=== PATIENT | male | born 1955 | race Caucasian/White ===

== ENCOUNTER 2017-02-16 15:56 | Emergency (ER) | payer BC ==
[~2017-02-16] VITALS: Ht 172.7 cm; Wt 104.6 kg
[2017-02-16 16:05] VITALS: TEMP 36.7; Ht 172.7 cm; Wt 104.6 kg
[2017-02-16] MEDS ORDERED: ESCI1TAB10 PO (16:50)
[2017-02-16] MEDS ORDERED: CHOL1000 PO (16:50)
[2017-02-16] MEDS ORDERED: FLAX12003 PO (16:50)
[2017-02-16] MEDS ORDERED: MULT-513 PO (16:50)
[2017-02-16] MEDS ORDERED: OMEG10007 PO (16:50)
[2017-02-16] MEDS ORDERED: B COCAP3 PO (16:50)
[2017-02-16] MEDS ORDERED: PRLSR20 PO (16:50)
[2017-02-16] MEDS ORDERED: CLOB-77 TOP (16:50)
[2017-02-16 17:33] LABS: BASO % 0.3 %; BASO ABS # 0.02 K/uL (0-0.2); COMPLETE YES; EOS % 2.9 %; HEMATOCRIT 47.9 % (42-52); IG% 0.3 %; LYMPH % 24.2 %; LYMPH ABS # 1.83 K/uL (1.2-3.4); MEAN CELL VOLUME 89.2 fL (80-100); MEAN CORPUSCULAR HEMOGLOBIN 29.2 pg (25-34); MEAN CORPUSCULAR HGB CONC 32.8 g/dl (32-36); MONO % 8.6 %; NEUT % 63.7 %; PLATELET COUNT 239 K/uL (130-400); RED BLOOD COUNT 5.37 M/uL (4.7-6.1); WHITE BLOOD COUNT 7.56 K/uL (4.8-10.8)
[2017-02-16 17:51] LABS: BUN/CREATININE RATIO 16.6 (10-20); CALCIUM 8.5 mg/dl (8.5-10.1); CREATININE 0.98 mg/dl (0.60-1.40)
[2017-02-16 17:57] LABS: URINE APPEARANCE CLEAR (CLEAR); URINE BILIRUBIN NEG (NEG); URINE COLOR YELLOW; URINE NITRITE NEG (NEG); URINE SPECIFIC GRAVITY 1.029 (1.000-1.030); UROBILINOGEN NEG (NEG)
[2017-02-16 18:09] LABS: MANUAL MICROSCOPIC REQUIRED? NO; REVIEW REQ? YES
[2017-02-16 18:17] LABS: URINE MUCUS PRESENT (NONE PRSENT)
--- NOTE | 2017-02-16 18:41 | DIAGNOSTIC IMAGING REPORT ---
SCROTAL ULTRASOUND CLINICAL HISTORY: Right testicular pain and swelling. COMPARISON STUDY: None. TECHNIQUE: Grayscale and color and duplex Doppler sonography of the scrotum was performed. FINDINGS: The right testis measures 4.4 x 2.5 x 3.3 cm and the left measures 4.1 x 2.7 x 2.6 cm. Color flow within each testis is symmetric. There is no testicular mass. No normal epididymis is identified. There are multiple complex cystic abnormalities within the scrotum, including a 4.3 x 4 x 2.5 cm abnormality adjacent to the left testis and a 4.6 x 4.3 x 2.8 cm abnormality adjacent to the right testis. There are small bilateral hydroceles. IMPRESSION: 1. Normal sonographic appearance of the testes. No testicular mass. No evidence of testicular torsion. 2. Multiple cystic abnormalities within the scrotum with low level echoes which could reflect large bilateral epididymal cysts or spermatoceles. 3. Small bilateral hydroceles. Electronically signed by: Sawyer Valentine M.D. 02/16/2017 6:40 PM Dictated Date/Time: 02/16/2017 6:37 PM
[2017-02-16] MEDS ORDERED: LEVO-366 PO (19:11)
[2017-02-16] MEDS ORDERED: LEVOFLOXACIN 500 MG TAB PO ONE (19:15)
[2017-02-16] MEDS ORDERED: LEVOFLOXACIN 250 MG TAB ONE (19:17)
[2017-02-16 19:30] VITALS: BP 141/81; PULSE 88; O2SAT 97
--- NOTE | 2017-02-16 22:44 | EMERGENCY ROOM VISIT NOTE ---
History First contact with patient: 16:14 Chief Complaint: TESTICULAR PAIN Stated Complaint: SWOLLEN TESTICLES, CANT URINATE History of Present Illness The patient is a 61 year old white male who presents to the Emergency Room with complaints of right-sided testicular pain and swelling that has been present for 2 days. He states he has been having difficulty urinating for this duration as well. He feels as though he needs to urinate, but is only able to get out about an ounce at a time. He feels as though his abdomen is somewhat more distended. He denies any difficulty moving his bowels. He has tenderness on the backside of his right testicle. He also states they're swollen. He does have a history of varicoceles and previous right-sided hernia. His accompanies him today. No fevers or chills. No nausea or vomiting. He denies any hematuria or dysuria. Review of Systems REVIEW OF SYSTEM: HEENT: No dizziness, visual problems, hearing loss, or tinnitus. There is no difficulty swallowing and no oral lesions are present. LYMPH: No adenopathy. PULMONARY: No cough, shortness of breath, sputum production or hemoptysis. CARDIOVASCULAR: No chest pain, palpitations, shortness of breath or peripheral edema. GASTROINTESTINAL: No diarrhea, constipation, nausea, vomiting, or abdominal pain. GENITOURINARY: No urgency or nocturia. Positive history of frequency and varicoceles. Positive sensation of incomplete voiding. NEUROLOGIC: No weakness, muscle tenderness, epilepsy or history of neurological problems. MUSCULOSKELETAL: No history of joint tenderness/swelling. No history of arthritis or arthralgias. SKIN: No rashes or lesions. PSYCHIATRIC: No history of depression or mental illness. ENDOCRINE: No history of diabetes, thyroid disorders, or abnormal hair growth. Past Medical/Surgical History Previous surgeries: Herniorrhaphy. Medical history: Significant for obesity and varicoceles Family History Noncontributory. Social History Smoking Status: Never Smoker Smokeless Tobacco Use: No Drug Use: none Marital Status: Housing Status: lives with family Occupation Status: employed Current/Historical Medications Scheduled B Complex W/ C (Vitamin B Complex-C), 1 CAP PO DAILY Cholecalciferol (Vitamin D3), 5,000 TAB PO DAILY Clobetasol Propionate (Temovate), 1 APPLN TOP BID Escitalopram Oxalate (Lexapro), 20 MG PO DAILY Fish Oil ([place]-3), 1,000 MG PO DAILY Flaxseed (Linseed) (Flaxseed Oil), 1 CAP PO DAILY Levofloxacin (Levaquin), 500 MG PO DAILY Multivitamins/Minerals (Mvi With Minerals), 1 TAB PO DAILY Omeprazole (Prilosec), 20 MG PO DAILY Physical Exam Vital Signs Date Time Temp Pulse Resp B/P (MAP) Pulse Ox O2 Delivery O2 Flow Rate FiO2 02/16/17 19:30 88 18 141/81 97 Room Air 02/16/17 18:50 61 18 126/76 96 Room Air 02/16/17 16:05 36.7 61 20 148/87 93 Room Air Physical Exam Gen.: Well-developed, well-nourished, middle-aged white male, in no acute distress. Laying on a bed. Alert and oriented. Skin:Warm and dry with good turgor. No rashes or lesions. No ecchymosis or erythema. The patient is not diaphoretic. No abrasions. Heart: Heart RRR. No MGR. No carotid bruit. Peripheral pulses are 2+. Lungs: Lungs are clear to auscultation. No crackles rhonchi or wheezing. Good air movement. The patient is able to take a deep breath. Abdomen: Abdomen was inspected, auscultated, and palpated. Bowel sounds present x 4. Soft, suprapubic discomfort to palpation. No hepato- splenomegaly. No masses noted. Lower abdomen feels somewhat firm. No rebound , negative Byers sign. No pain over McBurney's point. No CVA tenderness. Genital: Scrotum is swollen and tender on the right posterior to palpation. Varicoceles are palpable within the scrotum. No pain with palpation of the inguinal canal, pedal shaft, left testicle. No active drainage. Medical Decision & Procedures ER Provider Diagnostic Interpretation: Testicular ultrasound obtained today was read by radiology. IMPRESSION: 1. Normal sonographic appearance of the testes. No testicular mass. No evidence of testicular torsion. 2. Multiple cystic abnormalities within the scrotum with low level echoes which could reflect large bilateral epididymal cysts or spermatoceles. 3. Small bilateral hydroceles. Laboratory Results 02/16/17 17:20 Red Blood Count 5.37, Mean Corpuscular Volume 89.2, Mean Corpuscular Hemoglobin 29.2, Mean Corpuscular Hemoglobin Concent 32.8, Mean Platelet Volume 10.0, Neutrophils (%) (Auto) 63.7, Lymphocytes (%) (Auto) 24.2, Monocytes (%) (Auto) 8.6, Eosinophils (%) (Auto) 2.9, Basophils (%) (Auto) 0.3, Neutrophils # (Auto) 4.82, Lymphocytes # (Auto) 1.83, Monocytes # (Auto) 0.65, Eosinophils # (Auto) 0.22, Basophils # (Auto) 0.02 02/16/17 17:20 Test 02/16/17 17:20 02/16/17 17:45 White Blood Count 7.56 K/uL (4.8-10.8) Red Blood Count 5.37 M/uL (4.7-6.1) Hemoglobin 15.7 g/dL (14.0-18.0) Hematocrit 47.9 % (42-52) Mean Corpuscular Volume 89.2 fL (80-100) Mean Corpuscular Hemoglobin 29.2 pg (25-34) Mean Corpuscular Hemoglobin Concent 32.8 g/dl (32-36) Platelet Count 239 K/uL (130-400) Mean Platelet Volume 10.0 fL (7.4-10.4) Neutrophils (%) (Auto) 63.7 % Lymphocytes (%) (Auto) 24.2 % Monocytes (%) (Auto) 8.6 % Eosinophils (%) (Auto) 2.9 % Basophils (%) (Auto) 0.3 % Neutrophils # (Auto) 4.82 K/uL (1.4-6.5) Lymphocytes # (Auto) 1.83 K/uL (1.2-3.4) Monocytes # (Auto) 0.65 K/uL (0.11-0.59) Eosinophils # (Auto) 0.22 K/uL (0-0.5) Basophils # (Auto) 0.02 K/uL (0-0.2) RDW Standard Deviation 43.5 fL (36.4-46.3) RDW Coefficient of Variation 13.3 % (11.5-14.5) Immature Granulocyte % (Auto) 0.3 % Immature Granulocyte # (Auto) 0.02 K/uL (0.00-0.02) Anion Gap 7.0 mmol/L (3-11) Est Creatinine Clear Calc Drug Dose 94.0 ml/min Estimated GFR () 96.7 Estimated GFR (Non- 83.5 BUN/Creatinine Ratio 16.6 (10-20) Calcium Level 8.5 mg/dl (8.5-10.1) Chemistry Specimen Hemolysis Urine Color YELLOW Urine Appearance CLEAR (CLEAR) Urine pH 6.0 (4.5-7.5) Urine Specific [place] 1.029 (1.000-1.030) Urine Protein NEG (NEG) Urine Glucose (UA) NEG (NEG) Urine Ketones NEG (NEG) Urine Occult Blood NEG (NEG) Urine Nitrite NEG (NEG) Urine Bilirubin NEG (NEG) Urine Urobilinogen NEG (NEG) Urine Leukocyte Esterase SMALL (NEG) Urine WBC (Auto) 5-10 /hpf (0-5) Urine RBC (Auto) 0-4 /hpf (0-4) Urine Hyaline Casts (Auto) 0 /lpf (0-5) Urine Epithelial Cells (Auto) 5-10 /lpf (0-5) Urine Bacteria (Auto) NEG (NEG) Urine Crystals CALCIUM OXALATE (NONE Urine Mucus PRESENT (NONE PRSENT) UA, CBC, PRP were obtained. CBC and PRP are unremarkable. Urine shows leukocyte esterase, epithelials, calcium oxalate, and urine mucus. Negative for bacteria. Cultures were sent. Medications Administered Medications (Trade) Dose Ordered Sig/Nathaly Route Start Time Stop Time Status Last Admin Dose Admin Levofloxacin (Levaquin Tab) 500 mg STK-MED ONCE .ROUTE 02/16/17 19:17 02/16/17 19:18 DC 02/16/17 19:30 500 MG Levaquin 500 mg by mouth ED Course Patient was educated regarding today's findings. Conservative care measures were discussed. Labs were obtained. Ultrasound of the testicles was also obtained. Given his exam and lab findings, possibility of early epididymitis was discussed. Possibility of UTI was also discussed. Because of this, he was started on Levaquin 500 milligrams daily. First dose was given in the ED. Additional prescription was provided. I do not think he requires catheter placement this point. Obviously return to the ED if he has any inability to void. He does not require admission. Tylenol and Motrin every 6 hours as needed for discomfort. Follow-up with his PCP or urologist later this week for reexamination. He will consider whether or not to have his hydroceles addressed surgically. Care plan was discussed with Dr. Marley. Medical Decision Possibility of UTI, BPH, testicular torsion, hernia, epididymitis, and kidney stone were considered among others. Blood Pressure Screening Patient's blood pressure: Normal blood pressure Impression Primary Impression: Testicular pain, right Departure Information Prescriptions Levofloxacin (Levaquin) 500 Mg Tab 500 MG PO DAILY for 9 Days, #9 TAB Prov: Serge Chris,P.A. 02/16/[address] [facility]
== END 2017-02-16 19:32 | disposition home or self-care (01) ==
LOC: C.EDB 15:57
DX: N50.811 Right testicular pain (principal); Z98.890 Other specified postprocedural states

== ENCOUNTER 2017-06-13 05:23 | Day surgery (SDC) | payer BC ==
[2017-05-31 08:11] VITALS: BMI 35.0
--- NOTE | 2017-05-31 08:56 | PAT Medication Instructions ---
Service Date May 31, 2017. Current Home Medication List B Complex W/ C (Vitamin B Complex-C), 1 CAP PO QAM Cholecalciferol (Vitamin D3), 5,000 TAB PO QAM Clobetasol Propionate (Temovate), 1 APPLN TOP BID PRN for rash Escitalopram Oxalate (Escitalopram Oxalate), 10 MG PO HS Fish Oil ([place]-3), 1,000 MG PO QAM Flaxseed (Linseed) (Flaxseed Oil), 2 CAP PO QAM Multivitamins/Minerals (Mvi With Minerals), 1 TAB PO QAM Omeprazole (Prilosec), 20 MG PO QAM Medication Instructions For Your Scheduled Surgery - Hold the following medications starting today (05/31): Fish Oil ([place]-3), 1,000 MG PO QAM Flaxseed (Linseed) (Flaxseed Oil), 2 CAP PO QAM - Hold the following medications 24 hours prior to surgery: Clobetasol Propionate (Temovate), 1 APPLN TOP BID PRN for rash - Hold the following medications the morning of surgery: Multivitamins/Minerals (Mvi With Minerals), 1 TAB PO QAM B Complex W/ C (Vitamin B Complex-C), 1 CAP PO QAM Cholecalciferol (Vitamin D3), 5,000 TAB PO QAM - Take the following medications the morning of surgery with a sip of water: Omeprazole (Prilosec), 20 MG PO QAM - Take the following medications as scheduled the night before surgery: Escitalopram Oxalate (Escitalopram Oxalate), 10 MG PO HS If you have any questions please call us at [phone] or [phone] or [phone]
[2017-05-31 11:08] LABS: BASO % 0.4 %; BASO ABS # 0.03 K/uL (0-0.2); COMPLETE YES; EOS % 2.7 %; HEMATOCRIT 46.7 % (42-52); IG% 0.6 %; LYMPH % 26.3 %; LYMPH ABS # 1.84 K/uL (1.2-3.4); MEAN CELL VOLUME 90.7 fL (80-100); MEAN CORPUSCULAR HGB CONC 35.3 g/dl (32-36); MEAN PLATELET VOLUME 10.8 fL (7.4-10.4); MONO % 11.7 %; NEUT % 58.3 %; PLATELET COUNT 203 K/uL (130-400); RED BLOOD COUNT 5.15 M/uL (4.7-6.1); WHITE BLOOD COUNT 6.99 K/uL (4.8-10.8)
[2017-05-31 11:20] LABS: BUN/CREATININE RATIO 16.4 (10-20); CALCIUM 9.4 mg/dl (8.5-10.1); CREATININE 0.98 mg/dl (0.60-1.40); POTASSIUM 4.3 mmol/L (3.5-5.1)
[2017-05-31 11:31] LABS: MANUAL MICROSCOPIC REQUIRED? NO; REVIEW REQ? NO; URINE APPEARANCE TURBID (CLEAR); URINE BILIRUBIN NEG (NEG); URINE COLOR YELLOW; URINE EPITHELIAL CELL AUTO 20-30 /lpf (0-5); URINE NITRITE NEG (NEG); URINE PH 7.5 (4.5-7.5); URINE SPECIFIC GRAVITY 1.022 (1.000-1.030); UROBILINOGEN NEG (NEG)
[~2017-06-13] VITALS: Ht 172.7 cm; Wt 106.4 kg
[~2017-06-13 05:23] MED LIST: B COCAP3 PO; CHOL1000 PO; CLOB-77 TOP; FLAX12003 PO; LXP10 PO; MULT-513 PO; OMEG10007 PO; PRLSR20 PO
[2017-06-13 05:54] VITALS: BP 148/93; PULSE 69; TEMP 36.5; O2SAT 95; Ht 172.7 cm; Wt 106.4 kg
[2017-06-13] MEDS ORDERED: CEFAZOLIN 3000MG IV PUSH 15 ML IV SCH (06:00)
[2017-06-13] MEDS ORDERED: LACTATED RINGER'S 1000ML 1,000 ML IV SCH (06:00)
[2017-06-13] MEDS ORDERED: LIDOCAINE HCL 2% 2 ML VIAL (20MG/ML) ONE (06:26)
[2017-06-13] MEDS ORDERED: FENTANYL CITRATE INJ 50 MCG/1 ML 2 ML VIAL ONE (06:26)
[2017-06-13] MEDS ORDERED: MIDAZOLAM HCL 1 MG/ML 2ML VIAL ONE (06:26)
[2017-06-13] MEDS ORDERED: PROPOFOL IV EMULSION 10 MG/ML 20 ML VIAL IV ONE (06:26)
[2017-06-13] MEDS ORDERED: DEXAMETHASONE SOD INJ 4 MG/ML VIAL ONE (06:26)
[2017-06-13] MEDS ORDERED: ONDANSETRON INJ 2 MG/ML 2 ML VIAL ONE (06:26)
[2017-06-13] MEDS ORDERED: BACITRACIN OINT 15 GM TUBE ONE (07:07)
[2017-06-13] MEDS ORDERED: BUPIVACAINE 0.5 % 5 MG/1 ML MPF 30ML VIAL ONE (07:08)
--- NOTE | 2017-06-13 07:11 | History & Physical Bridge Note ---
H&P Re-Evaluation Bridge Note: I have examined the patient, reviewed the History & Physical and in the interval since the performance of the History & Physical I have noted the following changes of clinical significance: No changes noted
--- NOTE | 2017-06-13 07:22 | [facility] Operative Report ---
Operative Report Operative Date Jun 13, 2017. Pre-Operative Diagnosis Bilateral Hydrocele/Spermatocele Post-Operative Diagnosis Same Procedure(s) Performed Bilateral Hydrocelectomy and Spermatocelectomy Surgeon Steffen Continuing Education Dean Surgeon(s) None Estimated Blood Loss 15cc Findings Bilateral benign appearing testicular cystic lesions likely spermatocele and hydrocele. Fluids See Anes Report Specimens Right and left cystic lesions Drains None Anesthesia General Complication(s) None Disposition Recovery Room / PACU Indications Bothersome and worsening bilateral cystic scrotal lesions. Risks and benefits discussed and patient wished to proceed. Description of Procedure Patient was consented and brought back to the operating room. Patient was placed under anesthesia in the supine position. Patient was prepped and draped in the regular sterile fashion. A time out was completed. With the timeout completed, the median raphe was marked and an injection of local anesthetic placed into the skin. Bilateral cord blocks were also completed. An incision was made into the scrotum focusing on the right hemiscrotum. The subcutaneous tissues were dissected and the testicle delivered. With the testicle delivered the entire structure was examined. The hydrocele/spermatocele was visualized and all major cord structures and testicular structures were identified. The lesion was dissected away and removed. All bleeding was controlled with electrocautery. The hydrocele sac was excised and removed and the edges oversewn. At this point, any scrotal wall bleeding was controlled with cautery and the testicle delivered into the scrotum. The left hemiscrotum was then entered and the left testicle delivered. With the testicle delivered the entire structure was examined. The hydrocele/ spermatocele was visualized and all major cord structures and testicular structures were identified. The lesion was dissected away and removed. All bleeding was controlled with electrocautery. The hydrocele sac was excised and removed and the edges oversewn. At this point, any scrotal wall bleeding was controlled with cautery and the testicle delivered into the scrotum. The area was irrigated and all bleeding discovered and cauterized. The hemiscrotum bilaterally were closed with a running vicryl suture. [place] tissues were reapproximated and closed with a running vicryl suture. The skin edges were reapproximated with a running monocryl suture. The area was cleaned and skin glue placed on the wound. The patient was cleaned, scrotal support and fluff dressing placed, aroused from anesthesia, and transferred to the pacu in stable condition having tolerated the procedure well with no complications. I was present and participated in all aspects of the procedure. The patient will be monitored in the PACU until transferred. I attest to the content of the Intraoperative Record and any orders documented therein. Any exceptions are noted below.
[2017-06-13] MEDS ORDERED: OXYC7.5T65 PO (07:23)
[2017-06-13] MEDS ORDERED: LIDOCAINE HCL 1% 20 ML VIAL ONE (07:26)
[2017-06-13] MEDS ORDERED: BUPIVACAINE 0.25% 30 ML VIAL ONE (07:26)
--- NOTE | 2017-06-13 07:26 | Discharge Instructions ---
Discharge Instructions Date of Service Jun 13, 2017. Admission Reason for Admission: Spermatocele, Hydrocele Discharge Discharge Diagnosis / Problem: Bilateral Hydrocele Discharge Goals Goal(s): Decrease discomfort, Improve function Activity Recommendations Activity Limitations: resume your previous activity Lifting Limitations: no more than 10 pounds, no more than 25 pounds Exercise/Sports Limitations: as tolerated, rest today, gradually increase as tolerated Shower/Bathe: tomorrow May have discomfort or minor swelling. Okay to wash 2-3 x daily with warm soapy water. Do not scrub. No soaking or baths or hot tubs. Ice okay 20 mins on and 20 mins off. Elevate scrotum when laying flat, sitting, or walking. Wear supportive undergarments and watch for injury. Monitor for new swelling or severe pain. Monitor wound for swelling or redness. . Current Hospital Diet Patient's current hospital diet: Reg Discharge Diet Recommended Diet: Regular Diet Procedures Procedures Performed: Bilateral Hydrocelectomy and Spermatocelectomy Pending Studies Studies pending at discharge: no Medical Emergencies . Who to Call and When: Medical Emergencies: If at any time you feel your situation is an emergency, please call 911 immediately. . Non-Emergent Contact Non-Emergency issues call your: Primary Care Provider, Urologist Call Non-Emergent contact if: you have a fever, temperature is above 101, temperature is above 101.5, your pain is not controlled, your pain is worsening , your pain is unusual for you, wound has increased drainage, wound has increased redness, wound has increased pain . . "Provider Documentation" section prepared by Ruperto Bourne,. . VTE Core Measure Inpt VTE Proph given/why not?: Luciana Grullon, SCD's
[2017-06-13] MEDS ORDERED: FENTANYL CITRATE INJ 50 MCG/1 ML 2 ML VIAL IV PRN (07:30)
[2017-06-13] MEDS ORDERED: ATROPINE SULFATE 0.1 MG/ML 5ML SYR IV PRN (07:30)
[2017-06-13] MEDS ORDERED: OXYCODONE/ACETAMINOPHEN 7.5-325 TAB PO PRN (07:30)
[2017-06-13] MEDS ORDERED: HYDROmorphone INJ 1 MG/ML SYR IV PRN (07:30)
[2017-06-13] MEDS ORDERED: EpHEDrine SULFATE INJ 50 MG/ML AMP IV PRN (07:30)
[2017-06-13] MEDS ORDERED: ONDANSETRON INJ 2 MG/ML 2 ML VIAL IV PRN (07:30)
[2017-06-13] MEDS ORDERED: EpHEDrine SULFATE 50MG/5ML SYR ONE (07:40)
[2017-06-13] MEDS ORDERED: PHENYLEPHRINE 100MCG/ML 5ML SYR ONE (07:40)
[2017-06-13] MEDS ORDERED: ALBUMIN HUMAN 5% 12.5 GM/250 ML VIAL IV ONE (07:49)
--- NOTE | 2017-06-13 09:51 | Anesthesiology Progress Note ---
Anesthesia Post Op Note Date & Time Jun 13, 2017 at 09:51 Vital Signs Pain Intensity: 0 Vital Signs Past 12 Hours Date Time Temp Pulse Resp B/P (MAP) Pulse Ox O2 Delivery O2 Flow Rate FiO2 06/13/17 09:44 88 12 06/13/17 09:44 88 12 94 06/13/17 09:41 156/96 06/13/17 09:41 36.4 88 16 140/84 94 Nasal Cannula 2 06/13/17 09:39 88 13 06/13/17 09:39 88 13 92 06/13/17 09:36 156/94 06/13/17 09:34 87 13 94 06/13/17 09:34 87 13 06/13/17 09:31 158/96 06/13/17 09:29 87 14 94 06/13/17 09:29 87 14 06/13/17 09:28 90 15 94 06/13/17 09:28 89 15 06/13/17 09:25 152/95 06/13/17 09:23 88 12 92 06/13/17 09:23 89 12 06/13/17 09:21 146/95 06/13/17 09:19 157/92 06/13/17 09:18 91 12 149/102 91 06/13/17 09:18 36.3 96 16 157/92 92 Oxymask 10 06/13/17 09:18 93 12 06/13/17 05:54 36.5 69 20 148/93 (111) 95 Room Air Notes Mental Status: alert / awake / arousable, participated in evaluation Pt Amnestic to Procedure: Yes Nausea / Vomiting: adequately controlled Pain: adequately controlled Airway Patency, RR, SpO2: stable & adequate BP & HR: stable & adequate Hydration State: stable & adequate Anesthetic Complications: no major complications apparent
[2017-06-13 10:00] VITALS: BP 183/86; PULSE 84; TEMP 36.9; O2SAT 93
[2017-06-13 10:30] VITALS: BP 169/79; PULSE 81; O2SAT 92
[2017-06-13 11:00] VITALS: BP 159/73; PULSE 80; TEMP 36.5; O2SAT 93
[2017-06-14] MEDS ORDERED: CEFAZOLIN 2000MG IV PUSH 10 ML IV SCH (06:00)
== END 2017-06-13 11:15 | disposition home or self-care (01) ==
LOC: C.ACU 05:23
PROVIDERS: ATTEND Urology
DX: N43.3 Hydrocele, unspecified (principal); N43.40 Spermatocele of epididymis, unspecified; N50.819 Testicular pain, unspecified